=== PATIENT | male | born 1945 | race Caucasian/White ===

== ENCOUNTER 2021-04-14 17:34 | Inpatient (IN) ==
--- NOTE | 2021-04-14 18:26 | Emergency Department Note ---
Impression & Plan Complete heart block, HTN (hypertension), Ependymoma ED Provider Note NAME: DARIUS CARTER AGE: 75 SEX: M : 1945 ARRIVES VIA: Walk-In INFORMANT: Patient, ED PROVIDER(S): Vasquez Abel DO CHIEF COMPLAINT: Weakness HPI: The patient is a 75-year-old male who presented to the emergency department for an evaluation of generalized weakness. The patient has a history of a brain tumor. He has had surgeries in the past for this. He is normally followed at [facility]. He states he was very recently and had follow-up imaging which include an MRI of the brain. Everything appears to be stable in his intracranial process with the patient started bringing up that he has been having generalized weakness especially with ambulation. He is also been noticing shortness of breath with exertion. The patient also noticed that his pulse rate was low. He states that this is been going on for at least the last few months but continues to worsen. Over the last week it has become very severe and he is having difficulty ambulating even across the room. The patient states he tried to get in with his primary care physician. He was unable to get an appointment. When he called [facility] they told him that he should likely go to the hospital as he may need a pacemaker. The patient denies having any new medications. He states has been compliant with all of his usual outpatient medications. He denies having any recent illnesses such as cough fever nausea or vomiting. He denies having any headache at this time. ROS: See above HPI for pertinent positives & negatives. A total of 10 systems reviewed and were otherwise negative. PAST MEDICAL HISTORY: See Below PAST SURGICAL HISTORY: See Below FAMILY HISTORY: See Below SOCIAL HISTORY: See Below HOME MEDICATIONS: See Below ALLERGIES: See Below VITALS: See Below PHYSICAL EXAMINATION: GENERAL: The patient is awake and alert. The patient is resting comfortably. EYES: The conjunctivae are clear. The pupils are round and reactive. EARS, NOSE, MOUTH AND THROAT: The nose is without any evidence of any deformity. NECK: The neck is nontender and supple. RESPIRATORY: Normal respiratory effort is noted there is no evidence of wheezing rhonchi or rales CARDIOVASCULAR: Regular heart sounds were noted to auscultation. There is no definite murmur. Heart sounds were bradycardic. GASTROINTESTINAL: The abdomen is soft. Abdomen is nontender. MUSCULOSKELETAL/EXTREMITIES: There is no evidence of gross deformity full range of motion is noted in the hips and shoulders. SKIN: Pedal edema was noted bilaterally. Skin was warm and dry. NEUROLOGIC: Patient is awake alert and oriented x3. MEDICAL DECISION MAKING: The patient is a 75-year-old male who presented to emergency department for generalized weakness. 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 He does not have significant hydrocephalus. I discussed the patient's laboratory and radiographic studies with him. His presentation revealed an EKG that I felt was consistent with third-degree heart block. I discussed his condition with the on-call [facility] archeologist as well as the on-call [facility] hospitalist. The patient was treated with atropine to determine if there would be a response however given the block there was no significant change in the patient's heart rate. The patient remained stable in the emergency department. He was felt to be a good candidate for pacemaker. The patient is to be evaluated by cardiology for pacemaker placement. The patient was agreeable to the plan. Triage Nursing notes reviewed. Prior medical records reviewed Vital Signs: reviewed and remarkable for bradycardia and hypertension. Differential diagnosis: Infection, dehydration, metabolic abnormality, hypo/hyperglycemia, electrolyte disturbance, anemia, hypoxia, cardiac sources, intracerebral event, toxicologic, neurologic, as well as other pathologies. ER treatment provided: See below Diagnostics interpreted by me: ECG: EKG was obtained in the emergency department. My interpretation is third- degree heart block at 31 bpm. Ectopy was noted. No previous tracing was available for comparison. A second EKG was obtained after 1 mg of atropine. My interpretation is third- degree heart block at 41 bpm. There is no significant change compared to the earlier tracing. Cardiac Monitoring: An order was placed for continuous cardiac monitoring. The monitor shows a rate of 30 bpm with third-degree heart block. Laboratory studies: As stated above and show below. Imaging studies: See below Consultation(s): 184: I discussed this case with Dr. Duarte he does recommend giving the patient a dose of atropine and then reevaluating the rhythm. I discussed this case with Dr. Pereyra [facility] He will evaluate the patient in the emergency department. ED COURSE: Procedures: none PDMP:reviewed and no issues Critical Care: I have personally spent greater than 40 minutes of critical care time in the direct management of this patient. This includes bedside care, interpretation of diagnostic studies, and testing, discussion with consultants, patient, and family members, and other required patient management activities. This 40 minutes is in excess of all separately billable procedures. Past Med/Surg History Medical History Ependymoma GERD (gastroesophageal reflux disease) Hypertension Surgical History H/O brain surgery Social History Smoking Status: Former smoker Tobacco Type: Cigarettes and Smokeless Tobacco (Dip or Chew) Feels Safe at Home: Yes Allergies Allergies Allergy/AdvReac Type Severity Reaction Status Date / Time No Known Allergies Allergy Unverified 04/14/21 18:59 Home Meds Home Medications Medication Instructions Recorded Confirmed amlodipine 10 mg tablet 10 mg PO QAM 04/14/21 04/14/21 omeprazole 20 mg tablet,delayed 20 mg PO QAM 04/14/21 04/14/21 release Results & Data (ED) Vital Signs Vital Signs - 24 hr 04/14/21 18:05 04/14/21 18:40 04/14/21 18:50 Temperature 36.5 C Temperature Source Temporal Artery Scan Pulse Rate 33 L 33 L 40 L Pulse Rate from SpO2 Sensor 32 L Respiratory Rate 20 16 17 Respiratory Effort / Characteristics Non-Labored Spontaneous Respiratory Depth Normal Blood Pressure 176/81 H Blood Pressure Mean 112 Pulse Oximetry 97 99 Oxygen Delivery Method Room Air Sepsis Recent Fever Within 48 Hours No Sepsis New/Unexplained Change in Mental Status N/A Sepsis Action Taken by Nursing No Action Required 04/14/21 19:00 04/14/21 19:07 04/14/21 19:10 Temperature Temperature Source Pulse Rate 33 L 35 L Pulse Rate from SpO2 Sensor 35 L 34 L Respiratory Rate 21 16 Respiratory Effort / Characteristics Respiratory Depth Blood Pressure Blood Pressure Mean Pulse Oximetry 95 95 98 Oxygen Delivery Method Room Air Sepsis Recent Fever Within 48 Hours Sepsis New/Unexplained Change in Mental Status Sepsis Action Taken by Nursing 04/14/21 19:20 04/14/21 19:31 04/14/21 19:40 Temperature Temperature Source Pulse Rate 35 L 87 28 L Pulse Rate from SpO2 Sensor 33 L 31 L Respiratory Rate 16 26 H 14 Respiratory Effort / Characteristics Respiratory Depth Blood Pressure Blood Pressure Mean Pulse Oximetry 96 94 Oxygen Delivery Method Sepsis Recent Fever Within 48 Hours Sepsis New/Unexplained Change in Mental Status Sepsis Action Taken by Nursing 04/14/21 19:50 04/14/21 20:00 04/14/21 20:10 Temperature Temperature Source Pulse Rate 37 L 32 L 38 L Pulse Rate from SpO2 Sensor 36 L 32 L 38 L Respiratory Rate 17 16 16 Respiratory Effort / Characteristics Respiratory Depth Blood Pressure Blood Pressure Mean Pulse Oximetry 94 94 96 Oxygen Delivery Method Sepsis Recent Fever Within 48 Hours Sepsis New/Unexplained Change in Mental Status Sepsis Action Taken by Nursing 04/14/21 20:20 04/14/21 20:30 04/14/21 20:40 Temperature Temperature Source Pulse Rate 36 L 36 L 30 L Pulse Rate from SpO2 Sensor 34 L 34 L 31 L Respiratory Rate 15 16 22 Respiratory Effort / Characteristics Respiratory Depth Blood Pressure Blood Pressure Mean Pulse Oximetry 90 94 Oxygen Delivery Method Sepsis Recent Fever Within 48 Hours Sepsis New/Unexplained Change in Mental Status Sepsis Action Taken by Nursing 04/14/21 20:50 04/14/21 21:00 04/14/21 21:10 Temperature Temperature Source Pulse Rate 43 L 33 L 30 L Pulse Rate from SpO2 Sensor 37 L 34 L 33 L Respiratory Rate 15 15 Respiratory Effort / Characteristics Respiratory Depth Blood Pressure 178/85 H Blood Pressure Mean 116 Pulse Oximetry 94 94 96 Oxygen Delivery Method Sepsis Recent Fever Within 48 Hours Sepsis New/Unexplained Change in Mental Status Sepsis Action Taken by Nursing 04/14/21 21:20 04/14/21 21:30 04/14/21 21:40 Temperature Temperature Source Pulse Rate 32 L 32 L 33 L Pulse Rate from SpO2 Sensor 31 L 29 L 31 L Respiratory Rate 14 12 Respiratory Effort / Characteristics Respiratory Depth Blood Pressure 186/88 H Blood Pressure Mean 120 Pulse Oximetry 94 92 94 Oxygen Delivery Method Sepsis Recent Fever Within 48 Hours Sepsis New/Unexplained Change in Mental Status Sepsis Action Taken by Nursing 04/14/21 21:50 Temperature Temperature Source Pulse Rate 30 L Pulse Rate from SpO2 Sensor 34 L Respiratory Rate 15 Respiratory Effort / Characteristics Respiratory Depth Blood Pressure Blood Pressure Mean Pulse Oximetry 93 Oxygen Delivery Method Sepsis Recent Fever Within 48 Hours Sepsis New/Unexplained Change in Mental Status Sepsis Action Taken by Alf Medications Current Medication List: was personally reviewed by co Laboratory Data Attestation: I reviewed the patient's lab results. Result diagrams: 04/14/21 18:27 04/14/21 18:27 Lab Results 04/14/21 04/14/21 04/14/21 Range/Units 18:27 18:27 18:27 WBC 6.69 (4.8-10.8) K/uL RBC 4.90 (4.7-6.1) M/uL Hgb 14.7 (14.0-18.0) g/dL Hct 43.3 (42-52) % MCV 88.4 (80-100) fL MCH 30.0 (25-34) pg MCHC 33.9 (32-36) g/dL RDW Std Deviation 45.5 (36.4-46.3) fL RDW Coeff of Jose Luis 14.0 (11.5-14.5) % Plt Count 187 (130-400) K/uL MPV 10.0 (7.4-10.4) fL Immature Gran % (Auto) 0.1 % Neut % (Auto) 43.3 % Lymph % (Auto) 43.8 % [place] % (Auto) 10.0 % Eos % (Auto) 2.4 % Baso % (Auto) 0.4 % Neut # (Auto) 2.89 (1.4-6.5) K/uL Lymph # (Auto) 2.93 (1.2-3.4) K/uL [place] # (Auto) 0.67 H (0.11-0.59) K/uL Eos # (Auto) 0.16 (0-0.5) K/uL Baso # (Auto) 0.03 (0-0.2) K/uL Immature Gran # (Auto) 0.01 (0.00-0.02) K/uL PT 10.6 (9.0-12.0) Seconds INR 1.0 (0.9-1.1) APTT 25.2 (21.0-31.0) Seconds PTT Ratio 1.0 Sodium 140 (136-145) mmol/L Potassium 3.7 (3.5-5.1) mmol/L Chloride 109 H (98-107) mmol/L Carbon Dioxide 27 (21-32) mmol/L Anion Gap 4.0 (3-11) BUN 14 (7-18) mg/dl Creatinine 0.86 (0.6-1.4) mg/dl Est Cr Clr Drug Dosing 82.8 ml/min Est GFR ( Amer) 96.9 ml/min Est GFR (Non-Af Amer) 83.6 ml/min BUN/Creatinine Ratio 16.5 (10-20) Glucose 94 (70-99) mg/dl Calcium 8.9 (8.5-10.1) mg/dl Magnesium 2.9 H (1.8-2.4) mg/dl Total Bilirubin 0.5 (0.2-1) mg/dl AST 13 L (15-37) U/L ALT 22 (12-78) U/L Alkaline Phosphatase 82 (45-117) U/L Troponin I < 0.015 (0-0.045) ng/ml Total Protein 7.2 (6.4-8.2) gm/dl Albumin 3.6 (3.4-5.0) gm/dl Globulin 3.6 (2.5-4.0) gm/dl Albumin/Globulin Ratio 1.0 (0.9-2) TSH 1.310 (0.300-4.500) uIu/ml Lyme Disease IgG Ab (Negative) Lyme Disease IgM Ab (Negative) COVID-19 Eval Order SARS-CoV-2 (PCR) (Negative) 04/14/21 04/14/21 04/14/21 Range/Units 18:27 18:40 18:40 WBC (4.8-10.8) K/uL RBC (4.7-6.1) M/uL Hgb (14.0-18.0) g/dL Hct (42-52) % MCV (80-100) fL MCH (25-34) pg MCHC (32-36) g/dL RDW Std Deviation (36.4-46.3) fL RDW Coeff of Jose Luis (11.5-14.5) % Plt Count (130-400) K/uL MPV (7.4-10.4) fL Immature Gran % (Auto) % Neut % (Auto) % Lymph % (Auto) % [place] % (Auto) % Eos % (Auto) % Baso % (Auto) % Neut # (Auto) (1.4-6.5) K/uL Lymph # (Auto) (1.2-3.4) K/uL [place] # (Auto) (0.11-0.59) K/uL Eos # (Auto) (0-0.5) K/uL Baso # (Auto) (0-0.2) K/uL Immature Gran # (Auto) (0.00-0.02) K/uL PT (9.0-12.0) Seconds INR (0.9-1.1) APTT (21.0-31.0) Seconds PTT Ratio Sodium (136-145) mmol/L Potassium (3.5-5.1) mmol/L Chloride (98-107) mmol/L Carbon Dioxide (21-32) mmol/L Anion Gap (3-11) BUN (7-18) mg/dl Creatinine (0.6-1.4) mg/dl Est Cr Clr Drug Dosing ml/min Est GFR ( Amer) ml/min Est GFR (Non-Af Amer) ml/min BUN/Creatinine Ratio (10-20) Glucose (70-99) mg/dl Calcium (8.5-10.1) mg/dl Magnesium (1.8-2.4) mg/dl Total Bilirubin (0.2-1) mg/dl AST (15-37) U/L ALT (12-78) U/L Alkaline Phosphatase (45-117) U/L Troponin I (0-0.045) ng/ml Total Protein (6.4-8.2) gm/dl Albumin (3.4-5.0) gm/dl Globulin (2.5-4.0) gm/dl Albumin/Globulin Ratio (0.9-2) TSH (0.300-4.500) uIu/ml Lyme Disease IgG Ab Negative (Negative) Lyme Disease IgM Ab Negative (Negative) COVID-19 Eval Order Covid19 at [facility] SARS-CoV-2 (PCR) NEGATIVE (Negative) Administered Medications Potassium Chloride 20 meq/ (Dextrose/Lactated Ringer's) 1,010 mls @ 40 mls/hr IV .Q24H RODO Stop: 05/14/21 23:44 Last Admin: 04/14/21 23:43 Dose: 40 mls/hr Documented by: [id number] Discontinued Medications Amlodipine Besylate (Amlodipine Besylate 5 Mg Tab) 10 mg PO NOW STA Stop: 04/14/21 22:46 Last Admin: 04/14/21 23:42 Dose: Not Given Documented by: [id number] Atropine Sulfate (Atropine Sulfate 0.1 Mg/Ml 10ml Syr) 0.5 mg IV NOW STA Stop: 04/14/21 18:53 Last Admin: 04/14/21 19:03 Dose: 0.5 mg Documented by: [id number] Potassium Chloride (Potassium Chloride Crtab 20 Meq Tabcr) 40 meq PO NOW STA Stop: 04/14/21 21:39 Last Admin: 04/14/21 22:33 Dose: 40 meq Documented by: [id number] Imaging Data Radiologist's Impression: Chest X-Ray 04/14/21 18:11 XR chest 1V portable HISTORY: 75 years-old Male Chest Pain acute atypical chest pain COMPARISON: Chest radiographs 07/26/2006 TECHNIQUE: Portable AP view the chest FINDINGS: Cardiac silhouette is enlarged. No pneumothorax, pleural effusion or overt pulmonary edema. Mild chronic interstitial coarsening. Widening of the mediastinum is new from comparison. Calcified mediastinal lymph nodes. Calcific granuloma granuloma of the right lung. Degenerative changes of the shoulders and spine. IMPRESSION: 1. Cardiomegaly with widening of the mediastinum, likely secondary to technique. 2. Prior granulomatous disease. ACT 112: Negative or not required by law. The above report was generated using voice recognition software. It may contain grammatical, syntax or spelling errors. Electronically signed by: Jovany Morataya M.D. 04/14/2021 7:[address] 04/14/21 18:43 CT head/brain wo con CLINICAL HISTORY: 75 years-old Male with weakness. Acute weakness TECHNIQUE: Multiple axial CT images of the head were obtained without contrast. A dose lowering technique was utilized adhering to the principles of ALARA. CT DOSE: 1041.13 mGy.cm COMPARISON: Brain MRI 12/11/2007 07/05/2007 FINDINGS: Heterogeneous mixed attenuating mass of the posterior fossa measures up to 5.2 cm on image 7 series 2 demonstrates areas of marginal calcification. There is effacement of the fourth ventricle with encasement of the pontine and medullary brainstem and cervical medullary cord. This lesion previously measured up to ap proximately 3.4 cm on the 2007 study. No acute intracranial hemorrhage or hydrocephalus. Cerebral vascular calcifications. Progressively worsened white matter hypodensities. 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 The calvarium is intact. Mastoid air cells are clear. There is a large focus of polypoid mucosal thickening within the right maxillary sinus with small focus of polypoid mucosal thickening on the left. Suboccipital craniotomy changes. Unremarkable soft tissues. IMPRESSION: 1. Moderately increased size of the posterior fossa mass correlating with the patient's history of partially resected ependymoma now measuring over 5 cm in size. This results in effacement of the fourth ventricle. No associated hydrocephalus. 2. Age-related involutional changes with progressively worsened chronic microvascular ischemic disease. ACT 112: Negative or not required by law. The above report was generated using voice recognition software. It may contain grammatical, syntax or spelling errors. Electronically signed by: Jovany Morataya M.D. 04/14/2021 7:46 PM Discharge Plan Visit Data Chief Complaint: Cardiac Assessment Stated Complaint: LOW HEART RATE, CANT WALK VERY FAR ED Provider: Vasquez Abel Discharge Problem: Complete heart block, HTN (hypertension), Ependymoma Patient Disposition: Admitted As Inpatient Discharge Instructions Interventions: ED Discharge Assessment Last Done: 04/14/21 22:43 Discharge Problem: HTN (hypertension) Qualifiers: Hypertension type: unspecified Qualified Code(s): I10 - Essential (primary) hypertension
[2021-04-14] MEDS ORDERED: ATROPINE SULFATE 0.1 MG/ML 10ML SYR IV STA (18:52)
[2021-04-14 18:57] LABS: Basophils # (auto) 0.03 K/uL (0-0.2); Basophils % (auto) 0.4 %; Eosinophils # (auto) 0.16 K/uL (0-0.5); Eosinophils % (auto) 2.4 %; Hematocrit (blood only) 43.3 % (42-52); Hemoglobin 14.7 g/dL (14.0-18.0); Immature Granulocytes # (auto) 0.01 K/uL (0.00-0.02); Immature Granulocytes % (auto) 0.1 %; Lymphocytes # (auto) 2.93 K/uL (1.2-3.4); Lymphocytes % (auto) 43.8 %; Mean Corpuscular Hgb Conc 33.9 g/dL (32-36); Mean Corpuscular Volume 88.4 fL (80-100); Monocytes # (auto) 0.67 K/uL (0.11-0.59); Neutrophils # (auto) 2.89 K/uL (1.4-6.5); Neutrophils % (auto) 43.3 %; Platelet Count 187 K/uL (130-400); RDW Standard Deviation 45.5 fL (36.4-46.3); White Blood Count 6.69 K/uL (4.8-10.8)
[2021-04-14 19:08] LABS: Partial Thromboplastin Time 25.2 Seconds (21.0-31.0); Prothrombin Time 10.6 Seconds (9.0-12.0)
[2021-04-14 19:14] LABS: Alanine Aminotransferase 22 U/L (12-78); Albumin Level 3.6 gm/dl (3.4-5.0); Aspartate Aminotransferase 13 U/L (15-37); BUN Creatinine Ratio 16.5 (10-20); Blood Urea Nitrogen 14 mg/dl (7-18); Calcium 8.9 mg/dl (8.5-10.1); Carbon Dioxide 27 mmol/L (21-32); Chloride 109 mmol/L (98-107); Creatinine Clr Calc Pharmacy 82.8 ml/min; Est GFR (African American) 96.9 ml/min; Est GFR (Non-African American) 83.6 ml/min; Glucose 94 mg/dl (70-99); Magnesium 2.9 mg/dl (1.8-2.4); Potassium 3.7 mmol/L (3.5-5.1); Sodium 140 mmol/L (136-145)
--- NOTE | 2021-04-14 19:23 | XRay Report ---
XR chest 1V portable HISTORY: 75 years-old Male Chest Pain acute atypical chest pain COMPARISON: Chest radiographs 07/26/2006 TECHNIQUE: Portable AP view the chest FINDINGS: Cardiac silhouette is enlarged. No pneumothorax, pleural effusion or overt pulmonary edema. Mild kaiako kura [place] bautista interstitial coarsening. Widening of the mediastinum is new from comparison. Calcified mediastina l lymph nodes. Calcific granuloma granuloma of the right lung. Degenerative changes of the shoulders and spine. IMPRESSION: 1. Cardiomegaly with widening of the mediastinum, likely secondary to technique. 2. Prior granulomatous disease. ACT 112: Negative or not required by law. The above report was generated using voice recognition software. It may contain grammatical, syntax o r spelling errors. Electronically signed by: Jovany Morataya M.D. 04/14/2021 7:21 PM
[2021-04-14 19:24] LABS: Alkaline Phosphatase 82 U/L (45-117); Bilirubin,Total 0.5 mg/dl (0.2-1); Globulin 3.6 gm/dl (2.5-4.0); Total Protein 7.2 gm/dl (6.4-8.2); Troponin I < 0.015 ng/ml (0-0.045)
--- NOTE | 2021-04-14 19:48 | CT Scan Report ---
CT head/brain wo con CLINICAL HISTORY: 75 years-old Male with weakness. Acute weakness TECHNIQUE: Multiple axial CT images of the head were obtained without contrast. A dose lowering tech nique was utilized adhering to the principles of ALARA. CT DOSE: 1041.13 mGy.cm COMPARISON: Brain MRI 12/11/2007 07/05/2007 FINDINGS: Heterogeneous mixed attenuating mass of the posterior fossa measures up to 5.2 cm on image 7 series 2 demonstrates areas of marginal calcification. There is effacement of the fourth ventricle with encas ement of the pontine and medullary brainstem and cervical medullary cord. This lesion previously oc ured up to approximately 3.4 cm on the 2007 study. No acute intracranial hemorrhage or hydrocephalus. Cerebral vascular calcifications. Progressively wo rsened white matter hypodensities. Encephalomalacia of the right frontal lobe suggestive of chronic i nfarct. The calvarium is intact. Mastoid air cells are clear. There is a large focus of polypoid mucosal thi ckening within the right maxillary sinus with small focus of polypoid mucosal thickening on the left. Suboccipital craniotomy changes. Unremarkable soft tissues. IMPRESSION: 1. Moderately increased size of the posterior fossa mass correlating with the patient's history of pa rtially resected ependymoma now measuring over 5 cm in size. This results in effacement of the fourth ventricle. No associated hydrocephalus. 2. Age-related involutional changes with progressively worsened chronic microvascular ischemic diseas e. ACT 112: Negative or not required by law. The above report was generated using voice recognition software. It may contain grammatical, syntax o r spelling errors. Electronically signed by: Jovany Morataya M.D. 04/14/2021 7:46 PM
[2021-04-14 20:42] LABS: Lyme Ab IgG w/WB Rflx Negative (Negative); Lyme Ab IgM w/WB Rflx Negative (Negative)
[2021-04-14] MEDS ORDERED: POTASSIUM CHLORIDE CRTAB 20 MEQ TABCR PO STA (21:38)
--- NOTE | 2021-04-14 22:13 | History & Physical Report ---
Date of Service April 14, 2021 Assessment & Plan (1) Symptomatic bradycardia: Plan: Complete heart block ? 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 Duarte who recommends ICU monitoring and possible PPM placement in a.m.) Facilitate home amlodipine Follow-up with [facility]cology for further management of brain tumor as per patient's preference. DVT prophylaxis. SCDs Re: Brain tumor Full code Patient request for his to updated of plan of care. Ms. Radha Medina, contact #[phone]. Text document was generated using [employer] voice recognition software. It may contain grammatical or spelling errors. Kindly contact undersigned for clarification of any documentation item in question. History of Present Illness Chief Complaint: Generalized weakness, shortness of breath on exertion Primary Care Provider: Domingo Santana MD History obtained from patient and records. Medical history significant for cranial ependymoma status post surgery, radiation (2005), HTN, PVD, GERD, past tobacco abuse. Patient noted worsening of chronic weakness of his right side since last year. Worsening balance and frequent falls with transient left visual field loss symptoms. Patient denies headache symptoms. Outpatient Brain MRI last February 2021 results as follows : Heterogeneously enhancing mass in the posterior fossa encasing the distal right vertebral artery causing mass-effect on the medulla and cerebellum. Although the overall dimensions of the mass appears similar, extent of adjacent FLAIR hyperintensity in the right cerebellum is increased. May reflect progressive vasogenic edema or progressive tumor infiltration. Extensive findings of superficial fibrosis throughout cerebellar folia as well as with numerous supratentorial foci suggesting prior subarachnoid hemorrhage. Moderate advanced chronic white matter changes. Patient neurologist recommended follow-up with [facility] Hospital surgeon in [place]. No role for operative intervention as per surgeon as per patient. Possible role for radiotherapy. Patient noted to be bradycardic, cardiac rate in the 30s during [facility] visit. Patient without chest pain, shortness of breath complaints at that time. [facility] surgeon recommended local cardiology consultation for bradycardia. In the last week, patient noted increased fatigue and shortness of breath on exertion. Transient chest tightness. Cardiac rate 30s at home. Patient advised by PCP's office to go to the ER. Patient noted to have complete heart block at the ER. Cardiac rate 20-30s. Atropine 1 dose given. As per patient, he is comfortable as long as he is not moving around. Medical History as above Outpatient TTE follow-up study for December 2020 as follows: Concentric LVH. Moderate LAE enlargement. Mildly abnormal LV diastolic dysfunction. Mild AV sclerosis. Mild MR is present. Mild TR present. Aortic root is borderline enlarged. Proximal ascending thoracic aorta is mildly enlarged. No significant change from April 2019. 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 Allergies Allergy/AdvReac Type Severity Reaction Status Date / Time No Known Allergies Allergy Unverified 04/14/21 18:59 Home Medications Medication Instructions Recorded Confirmed Type amlodipine 10 mg tablet 10 mg PO QAM 04/14/21 04/14/21 History omeprazole 20 mg tablet,delayed 20 mg PO QAM 04/14/21 04/14/21 History release Past Med/Surg History Medical History Ependymoma GERD (gastroesophageal reflux disease) Hypertension Surgical History H/O brain surgery Social History Smoking Status: Former smoker Tobacco Type: Cigarettes and Smokeless Tobacco (Dip or Chew) Do You Dip or Chew Tobacco: Yes; Hx Alcohol Use: No Hx Substance Use: No Preferred Language: Filipino Communication Ability: Effective [place] And [place] Required: No Beliefs That Will Affect Care: None Current Living Situation: Spouse Other Information That Helps Us Care for You: No Feels Safe at Home: Yes Safety Concerns: Feels Safe At This Time Assistive Devices: Denture - Upper, Glasses and Hearing Aid - Bilateral Review of Systems Review of Systems: As per HPI, all 10 systems reviewed, all other ROS negative Physical Exam Physical Exam: GENERAL: Comfortable, slightly hard of hearing, dysarthric (chronic), pleasant, no respiratory distress SKIN: Normal color, warm HEENT: Bespectacled, pink palpebral conjunctivae, no ptosis, dry buccal mucosa NECK : Supple, no tenderness CHEST : CTA, no tenderness HEART : Bradycardic, no obvious murmurs ABDOMEN: Some distention, nontender EXTREMITIES : No LE swelling/tenderness, no other conspicuous deformities noted NEUROLOGIC : Coherent, mild dysarthria, gait and stance not assessed Results & Data Results & Data ([facility]) Vital Signs (Past 12 Hours) Vital Signs Temp Pulse Resp BP Pulse Ox 04/14/21 21:50 30 L 15 93 04/14/21 21:40 33 L 12 94 04/14/21 21:30 32 L 186/88 H 92 04/14/21 21:20 32 L 14 94 04/14/21 21:10 30 L 96 04/14/21 21:00 33 L 15 178/85 H 94 04/14/21 20:50 43 L 15 94 04/14/21 20:40 30 L 22 94 04/14/21 20:30 36 L 16 04/14/21 20:20 36 L 15 90 04/14/21 20:10 38 L 16 96 04/14/21 20:00 32 L 16 94 04/14/21 19:50 37 L 17 94 04/14/21 19:40 28 L 14 94 04/14/21 19:31 87 26 H 04/14/21 19:20 35 L 16 96 04/14/21 19:10 35 L 16 98 04/14/21 19:07 95 04/14/21 19:00 33 L 21 95 04/14/21 18:50 40 L 17 04/14/21 18:40 33 L 16 99 04/14/21 18:05 36.5 C 33 L 20 176/81 H 97 Laboratory Results Laboratory Results WBC 6.69 K/uL (4.8-10.8) 04/14/21 18:27 RBC 4.90 M/uL (4.7-6.1) 04/14/21 18:27 Hgb 14.7 g/dL (14.0-18.0) 04/14/21 18:27 Hct 43.3 % (42-52) 04/14/21 18:27 MCV 88.4 fL (80-100) 04/14/21 18:27 MCH 30.0 pg (25-34) 04/14/21 18:27 MCHC 33.9 g/dL (32-36) 04/14/21 18: RDW Std Deviation 45.5 fL (36.4-46.3) 04/14/21 18: RDW Coeff of Jose Luis 14.0 % (11.5-14.5) 04/14/21 18: Plt Count 187 K/uL (130-400) 04/14/21 18: MPV 10.0 fL (7.4-10.4) 04/14/21 18: Immature Gran % (Auto) 0.1 % 04/14/21 18: Neut % (Auto) 43.3 % 04/14/21: Lymph % (Auto) 43.8 % 04/14/21: Frederick % (Auto) 10.0 % 04/14/21: Eos % (Auto) 2.4 % 04/14/21 Baso % (Auto) 0.4 % 04/14/21 18 Neut # (Auto) 2.89 K/uL (1.4-6.5) 04/14/21 18: Lymph # (Auto) 2.93 K/uL (1.2-3.4) 04/14/21 18: Frederick # (Auto) 0.67 K/uL (0.11-0.59) H 04/14/21 18: Eos # (Auto) 0.16 K/uL (0-0.5) 04/14/21 18: Baso # (Auto) 0.03 K/uL (0-0.2) 04/14/21: Immature Gran # (Auto) 0.01 K/uL (0.00-0.02) 04/14/21 18: PT 10.6 Seconds (9.0-12.0) 04/14/21 18: INR 1.0 (0.9-1.1) 04/14/21: APTT 25.2 Seconds (21.0-31.0) 04/14/21 18: PTT Ratio 1.0 04/14/21 18: Sodium 140 mmol/L (136-145) 04/14/21 18: Potassium 3.7 mmol/L (3.5-5.1) 04/14/21:27 Chloride 109 mmol/L (98-107) H 04/14/21 18: Carbon Dioxide 27 mmol/L (21-32) 04/14/21 18: Anion Gap 4.0 (3-11) 04/14/21 18: BUN 14 mg/dl (7-18) 04/14/21 18: Creatinine 0.86 mg/dl (0.6-1.4) 04/14/21 18: Est Cr Clr Drug Dosing 82.8 ml/min 04/14/21 18: Est GFR ( Amer) 96.9 ml/min 04/14/21 18: Est GFR (Non-Af Amer) 83.6 ml/min 04/14/21: BUN/Creatinine Ratio 16.5 (10-20) 04/14/21 18: Glucose 94 mg/dl (70-99) 04/14/21 18: Calcium 8.9 mg/dl (8.5-10.1) 04/14/21 18: Magnesium 2.9 mg/dl (1.8-2.4) H 04/14/21 18: Total Bilirubin 0.5 mg/dl (0.2-1) 04/14/21 18: AST 13 U/L (15-37) L 04/14/21: ALT 22 U/L (12-78) 04/14/21 18: Alkaline Phosphatase 82 U/L (45-117) 04/14/21: Troponin I < 0.015 ng/ml (0-0.045) 04/14/21 18: Total Protein 7.2 gm/dl (6.4-8.2) 04/14/21 18: Albumin 3.6 gm/dl (3.4-5.0) 04/14/21: Globulin 3.6 gm/dl (2.5-4.0) 04/14/21: Albumin/Globulin Ratio 1.0 (0.9-2) 04/14/21 18: TSH 1.310 uIu/ml (0.300-4.500) 04/14/21 18: Lyme Disease IgG Ab Negative (Negative) 04/14/21 18 Lyme Disease IgM Ab Negative (Negative) 10/07/21 18:27 COVID-19 Eval Order Covid19 at [facility] 04/14/21 18:40 SARS-CoV-2 (PCR) NEGATIVE (Negative) 04/14/21 18:40 Impressions Chest X-Ray 04/14/21 18:11 XR chest 1V portable HISTORY: 75 years-old Male Chest Pain acute atypical chest pain COMPARISON: Chest radiographs 07/26/2006 TECHNIQUE: Portable AP view the chest FINDINGS: Cardiac silhouette is enlarged. No pneumothorax, pleural effusion or overt pulmonary edema. Mild chronic interstitial coarsening. Widening of the mediastinum is new from comparison. Calcified mediastinal lymph nodes. Calcific granuloma granuloma of the right lung. Degenerative changes of the shoulders and spine. IMPRESSION: 1. Cardiomegaly with widening of the mediastinum, likely secondary to technique. 2. Prior granulomatous disease. ACT 112: Negative or not required by law. The above report was generated using voice recognition software. It may contain grammatical, syntax or spelling errors. Electronically signed by: Jovany Morataya M.D. 04/14/2021 7:[address] 04/14/21 18:43 CT head/brain wo con CLINICAL HISTORY: 75 years-old Male with weakness. Acute weakness TECHNIQUE: Multiple axial CT images of the head were obtained without contrast. A dose lowering technique was utilized adhering to the principles of ALARA. CT DOSE: 1041.13 mGy.cm COMPARISON: Brain MRI 12/11/2007 07/05/2007 FINDINGS: Heterogeneous mixed attenuating mass of the posterior fossa measures up to 5.2 cm on image 7 series 2 demonstrates areas of marginal calcification. There is effacement of the fourth ventricle with encasement of the pontine and medullary brainstem and cervical medullary cord. This lesion previously measured up to approximately 3.4 cm on the 2007 study. No acute intracranial hemorrhage or hydrocephalus. Cerebral vascular calcifications. Progressively worsened white matter hypodensities. 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 The calvarium is intact. Mastoid air cells are clear. There is a large focus of polypoid mucosal thickening within the right maxillary sinus with small focus of polypoid mucosal thickening on the left. Suboccipital craniotomy changes. Unremarkable soft tissues. IMPRESSION: 1. Moderately increased size of the posterior fossa mass correlating with the patient's history of partially resected ependymoma now measuring over 5 cm in size. This results in effacement of the fourth ventricle. No associated hydrocephalus. 2. Age-related involutional changes with progressively worsened chronic microvascular ischemic disease. ACT 112: Negative or not required by law. The above report was generated using voice recognition software. It may contain grammatical, syntax or spelling errors. Electronically signed by: Jovany Morataya M.D. 04/14/2021 7:46 PM Diagnostic Findings EKG as per my interpretation : Rate 30, complete heart block, LAD, LAFB, T wave abnormalities inferior leads
[2021-04-14] MEDS ORDERED: amLODIPine BESYLATE 5 MG TAB PO STA (22:45)
[2021-04-14] MEDS ORDERED: ATROPINE SULFATE 0.1 MG/ML 10ML SYR IV ONE (23:09)
[2021-04-14] MEDS ORDERED: oxyCODONE HCL IR 5 MG TAB (IMMEDIATE RELEASE) PO PRN (23:20)
[2021-04-14] MEDS ORDERED: MoRPHine SULFATE 2 MG/ML CARP IV PRN (23:20)
[2021-04-14] MEDS ORDERED: LORazepam 0.25 MG/0.5 ML VIAL IV PRN (23:20)
[2021-04-14] MEDS ORDERED: ICU PROTOCOL FOR HYPERGLYCEMIA PRN (23:20)
[2021-04-14] MEDS ORDERED: PROMETHAZINE HCL 12.5 MG in SODIUM CHLORIDE 0.9% 50 ML IV PRN (23:20)
[2021-04-14] MEDS ORDERED: ATROPINE SULFATE 0.1 MG/ML 10ML SYR IV PRN (23:20)
[2021-04-14] MEDS ORDERED: POTASSIUM CHLORIDE 20 MEQ in D5W AND LACTATED RINGERS 1,000 ML IV SCH (23:45)
--- NOTE | 2021-04-14 23:58 | Critical Care Consultation ---
Date of Consultation April 14, 2021 Assessment & Plan (1) Complete heart block: Impression: 75-year-old male presents to the ICU in complete heart block with heart rate low 30s. Currently asymptomatic at rest and remains hypertensive. Plan for patient to undergo pacemaker and monitor in ICU until then. Neuro - [facility] ICU: Negative History of brain tumorpatient with history of and ependymoma and underwent partial resection approximately 15 years ago at [facility]. He states he had an appointment at [facility] approximately 1 month ago and was evaluated and did not feel there is any intervention needed. -CT head showed moderately increased size of posterior fossa mass correlating with patient's history of partially resected ependymoma now measuring 5.2 cm. Results in effacement of the fourth ventricle. No associated hydrocephalus Cardiac - Complete heart blockpatient presents with complete heart block suspected to be ongoing x1 month per patient symptoms -Troponin negative -No severe electrolyte abnormalities -Lyme negative -Remains hemodynamically stable and currently asymptomatic at rest. Strict bed rest -Cardiology consulted, recommend monitoring in ICU with plan to undergo pacemaker insertion -Continuous monitor on telemetry -We will leave pacer pads on patient's chest in case he were to decompensate. Atropine at bedside Respiratory - Shortness of breath associated with exertion likely related to bradycardia -No history of pulmonary disease, lungs clear to auscultation -Continuous monitoring pulse ox GI - N.p.o. GERDPPI RENAL/LYTES - Creatinine within normal limits, no severe electrolyte abnormalities Monitor routine BMPs - Strict I's and O's ENDO - No history of diabetes or thyroid disease. TSH 1.31 ICU hyperglycemic protocol HEME - H&H stable, monitor routine CBC ID - No indication for infectious process at this time LINES/IV ACCESS - Peripheral IVs DVT PROPHYLAXIS - SCDs, hold anticoagulation as patient likely to undergo pacemaker insertion Thank you for allowing us to participate in the care of this patient. Please refer to my attending physician's documentation for any further recommendations. (2) HTN (hypertension): (3) Ependymoma: (4) GERD (gastroesophageal reflux disease): History of Present Illness Attending Physician: Maximino Valentin MD History of Present Illness Patient is a 75-year-old male with past medical history brain tumor with previous partial resection at [facility]. He presented to the emergency department earlier this evening with complaints of generalized weakness and fatigue with associated shortness of breath, significantly worse with exertion. He is also noticed that his pulse rates has been low on his home blood pressure monitoring device. He spoke with his physician at [facility] who directed him to the emergency department. In the emergency department the patient was found to have heart rate in the low 30s. He was initially given atropine on arrival. EKG revealed third-degree heart block. Troponin was negative. Lyme negative. Cardiology consulted and recommend monitoring in the ICU and likely patient will undergo pacemaker insertion. On exam, the patient is asymptomatic although his heart rate on the monitor is in the low 30s, and he is hypertensive. He again reports shortness of breath with activity but is currently asymptomatic. He denies recent illness, fevers, sore throat, chest pain, palpitations, abdominal pain. Patient remained in ICU for further monitoring at this time. Allergies Allergy/AdvReac Type Severity Reaction Status Date / Time No Known Allergies Allergy Unverified 04/14/21 18:59 Home Medications Medication Instructions Recorded Confirmed Type amlodipine 10 mg tablet 10 mg PO QAM 04/14/21 04/14/21 History omeprazole 20 mg tablet,delayed 20 mg PO QAM 04/14/21 04/14/21 History release Patient History Medical History Ependymoma GERD (gastroesophageal reflux disease) Hypertension Surgical History H/O brain surgery Social History Smoking Status: Former smoker Tobacco Type: Cigarettes and Smokeless Tobacco (Dip or Chew) Do You Dip or Chew Tobacco: Yes; Hx Alcohol Use: No Hx Substance Use: No Preferred Language: Indonesian Communication Ability: Effective Dental Claims Processor Required: No Beliefs That Will Affect Care: None Current Living Situation: Spouse Other Information That Helps Us Care for You: No Feels Safe at Home: Yes Safety Concerns: Feels Safe At This Time Assistive Devices: Denture - Upper, Glasses and Hearing Aid - Bilateral Review of Systems Review of Systems: All systems reviewed & are unremarkable except as noted in HPI & below Physical Exam Constitutional: cooperative and comfortable Eyes: PERRL, conjunctivae normal, anicteric sclerae ENMT: external ear and nose normal, oropharynx normal Neck: trachea midline, no thyromegaly Respiratory: normal respiratory effort, lungs clear to auscultation Cardiovascular: Rate/Rhythm: + bradycardic and + irregularly irregular Heart Sounds: normal S1 and normal S2 Extremities: normal capillary refill; no edema Gastrointestinal (Abdomen): normal bowel sounds, soft, nontender, no hepatosplenomegaly Musculoskeletal: no cyanosis or clubbing, extremities motor strength 5/5 Skin: no rashes, warm and dry Neurologic: PERRL, EOMI, accommodation nl, no face palsy, no dysarthria Psychiatric: A+Ox3, euthymic affect Results & Data Results & Data ([facility]) Vital Signs (Past 12 Hours) Vital Signs Temp Pulse Resp BP Pulse Ox 04/14/21 22:43 30 L 16 154/75 H 94 04/14/21 21:50 30 L 15 93 04/14/21 21:40 33 L 12 94 04/14/21 21:30 32 L 186/88 H 92 04/14/21 21:20 32 L 14 94 04/14/21 21:10 30 L 96 04/14/21 21:00 33 L 15 178/85 H 94 04/14/21 20:50 43 L 15 94 04/14/21 20:40 30 L 22 94 04/14/21 20:30 36 L 16 04/14/21 20:20 36 L 15 90 04/14/21 20:10 38 L 16 96 04/14/21 20:00 32 L 16 94 04/14/21 19:50 37 L 17 94 04/14/21 19:40 28 L 14 94 04/14/21 19:31 87 26 H 04/14/21 19:20 35 L 16 96 04/14/21 19:10 35 L 16 98 04/14/21 19:07 95 04/14/21 19:00 33 L 21 95 04/14/21 18:50 40 L 17 04/14/21 18:40 33 L 16 99 04/14/21 18:05 36.5 C 33 L 20 176/81 H 97 Coding Level of Care Code 64998 Inpt Consult Level 5 Diagnoses Complete heart block I44.2 HTN (hypertension) I10 Ependymoma C71.9 GERD (gastroesophageal reflux disease) K21.9
[2021-04-15 04:57] LABS: BUN Creatinine Ratio 13.2 (10-20); Calcium 8.5 mg/dl (8.5-10.1); Creatinine Clr Calc Pharmacy 82.4 ml/min; Est GFR (African American) 99.9 ml/min; Est GFR (Non-African American) 86.2 ml/min; Potassium 4.2 mmol/L (3.5-5.1)
[2021-04-15] MEDS ORDERED: WATER, STERILE FOR INJ 10 ML VIAL ONE (06:52)
[2021-04-15] MEDS ORDERED: LIDOCAINE 1% LOCAL 20 ML VIAL ONE (06:52)
[2021-04-15] MEDS ORDERED: BUPIVACAINE 0.25% 30 ML VIAL ONE (06:53)
[2021-04-15] MEDS ORDERED: VANCOMYCIN HCL 1000MG/20ML VIAL ONE (06:53)
--- NOTE | 2021-04-15 07:56 | Critical Care Progress Note ---
Date of Service April 15, 2021 Assessment & Plan (1) Complete heart block: Plan: Brief progress note: 75-year-old male presents to the ICU in complete heart block with heart rate low 30s, asymptomatic at rest and hypertensive. He subsequently had placement of dual chamber pacemaker. complete heart block Rhythm is paced, rate in the 70s at the time of my exam after return from procedure. Cardiology's recommendations appreciated. Lyme ab neg neuro: CAM-ICU neg.+ posterior fossa mass (ependymoma). GI - HH diet after pacemaker placement GERDPPI RENAL/LYTES - No severe electrolyte opportunities. Monitor routine BMPs - Strict I's and O's. cumulative 1.2L in 1.9L out ENDO - No history of diabetes or thyroid disease. TSH 1.31 ICU hyperglycemic protocol HEME - H&H stable, monitor routine CBC ID - No indication for infectious process at this time LINES/IV ACCESS - Peripheral IVs DVT PROPHYLAXIS - SCDs code: full dispo: stable for downgrade from ICU (2) HTN (hypertension): (3) Symptomatic bradycardia: (4) Ependymoma: (5) GERD (gastroesophageal reflux disease): Admission and Anticipated Discharge Date Admission Date: April 14, 2021 Supervising Physician Co-Signing Physician Notes Dr. Escalante was resident physician during care of patient. I separately evaluated patient for travis portions of the history and the exam. I was present during the critical portion of medical decision making, and I discussed the case with the resident. I generally agree with the findings and plan. Pacemaker inserted by the time of my evaluation, stable for downgrade out of ICU. Subjective I saw the patient this AM at 7AM just prior to patient going to pacemaker placement. Patient endorses fatigue, but denies other symptoms. No f/c, chest pain, palpitations, SOB, confusion. Review of Systems Review of Systems: All systems reviewed & are unremarkable except as noted in HPI & below Physical Exam 2 Physical Exam: General: A&Ox4. NAD. Cooperative. HEENT: Atraumatic, normocephalic. EOMI Pulm: CTAB anteriorly. -wheezes, -rales, -rhonchi. No respiratory distress. Cardiac: RRR, -mrg. Radial pulses intact and symmetrical. Abdominal: Nontender, nondistended, soft. Integ: Warm, dry, intact Results & Data Results & Data ([place]) Vital Signs (Past 12 Hours) Vital Signs bps slightly elevated mostly 150s 160s systolics. sats ok RA. HR mid-low 30s. Temp Pulse Pulse Resp BP BP Pulse Ox 04/15/21 07:23 36.8 C 30 L 20 152/81 H 96 04/15/21 05:00 31 L 12 172/78 H 95 04/15/21 04:00 36.7 C 27 L 14 158/86 H 90 04/15/21 03:30 28 L 14 152/92 H 94 04/15/21 02:30 32 L 15 152/76 H 95 04/15/21 02:00 29 L 16 152/76 H 95 04/15/21 01:00 37 L 15 149/113 H 91 04/15/21 00:10 30 L 13 167/82 H 92 04/15/21 00:00 31 L 12 92 04/14/21 23:50 41 L 19 95 04/14/21 23:20 30 L 04/14/21 23:04 36.4 C L 32 L 15 167/75 H 93 04/14/21 23:00 36.4 C L 34 L 14 167/75 H 97 04/14/21 22:43 30 L 16 154/75 H 94 04/14/21 21:50 30 L 15 93 04/14/21 21:40 33 L 12 94 04/14/21 21:30 32 L 186/88 H 92 04/14/21 21:20 32 L 14 94 04/14/21 21:10 30 L 96 04/14/21 21:00 33 L 15 178/85 H 94 04/14/21 20:50 43 L 15 94 04/14/21 20:40 30 L 22 94 04/14/21 20:30 36 L 16 04/14/21 20:20 36 L 15 90 04/14/21 20:10 38 L 16 96 04/14/21 20:00 32 L 16 94 Laboratory Results 04/14 cbc and coags wnl. bmp ok. check mg phos w/ next AM labs. lyme Ab neg. 04/14/21 18:27 04/15/21 04:26 Cardiac Enzymes 04/14/21 Range/Units 18:27 AST 13 L (15-37) U/L Troponin I < 0.015 (0-0.045) ng/ml Coagulation 04/14/21 Range/Units 18:27 PT 10.6 (9.0-12.0) Seconds APTT 25.2 (21.0-31.0) Seconds CBC 04/14/21 Range/Units 18:27 WBC 6.69 (4.8-10.8) K/uL RBC 4.90 (4.7-6.1) M/uL Hgb 14.7 (14.0-18.0) g/dL Hct 43.3 (42-52) % Plt Count 187 (130-400) K/uL Neut # (Auto) 2.89 (1.4-6.5) K/uL Lymph # (Auto) 2.93 (1.2-3.4) K/uL Nash # (Auto) 0.67 H (0.11-0.59) K/uL Eos # (Auto) 0.16 (0-0.5) K/uL Baso # (Auto) 0.03 (0-0.2) K/uL Comprehensive Metabolic Panel 04/14/21 04/15/21 Range/Units 18:27 04:26 Sodium 140 142 (136-145) mmol/L Potassium 3.7 4.2 (3.5-5.1) mmol/L Chloride 109 H 112 H (98-107) mmol/L Carbon Dioxide 27 28 (21-32) mmol/L BUN 14 11 (7-18) mg/dl Creatinine 0.86 0.80 (0.6-1.4) mg/dl Glucose 94 98 (70-99) mg/dl Calcium 8.9 8.5 (8.5-10.1) mg/dl AST 13 L (15-37) U/L ALT 22 (12-78) U/L Alkaline Phosphatase 82 (45-117) U/L Total Protein 7.2 (6.4-8.2) gm/dl Albumin 3.6 (3.4-5.0) gm/dl Intake and Output 04/14/21 04/15/21 04/15/21 22:59 06:59 14:59 Output Total 900 / 900 Balance -900 / -900 Output: Urine 900 / 900 Other: Weight 90.6 kg 88.8 kg Weight Measurement Method Chair Scale Standing Scale Diagnostic Findings Chest X-Ray 04/14/21 18:11 XR chest 1V portable HISTORY: 75 years-old Male Chest Pain acute atypical chest pain COMPARISON: Chest radiographs 07/26/2006 TECHNIQUE: Portable AP view the chest FINDINGS: Cardiac silhouette is enlarged. No pneumothorax, pleural effusion or overt pulmonary edema. Mild chronic interstitial coarsening. Widening of the mediastinum is new from comparison. Calcified mediastinal lymph nodes. Calcific granuloma granuloma of the right lung. Degenerative changes of the shoulders and spine. IMPRESSION: 1. Cardiomegaly with widening of the mediastinum, likely secondary to technique. 2. Prior granulomatous disease. ACT 112: Negative or not required by law. The above report was generated using voice recognition software. It may contain grammatical, syntax or spelling errors. Electronically signed by: Jovany Morataya M.D. 04/14/2021 7:[address] 04/14/21 18:43 CT head/brain wo con CLINICAL HISTORY: 75 years-old Male with weakness. Acute weakness TECHNIQUE: Multiple axial CT images of the head were obtained without contrast. A dose lowering technique was utilized adhering to the principles of ALARA. CT DOSE: 1041.13 mGy.cm COMPARISON: Brain MRI 12/11/2007 07/05/2007 FINDINGS: Heterogeneous mixed attenuating mass of the posterior fossa measures up to 5.2 cm on image 7 series 2 demonstrates areas of marginal calcification. There is effacement of the fourth ventricle with encasement of the pontine and medullary brainstem and cervical medullary cord. This lesion previously measured up to approximately 3.4 cm on the 2007 study. No acute intracranial hemorrhage or hydrocephalus. Cerebral vascular calcifications. Progressively worsened white matter hypodensities. 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 The calvarium is intact. Mastoid air cells are clear. There is a large focus of polypoid mucosal thickening within the right maxillary sinus with small focus of polypoid mucosal thickening on the left. Suboccipital craniotomy changes. Unremarkable soft tissues. IMPRESSION: 1. Moderately increased size of the posterior fossa mass correlating with the patient's history of partially resected ependymoma now measuring over 5 cm in size. This results in effacement of the fourth ventricle. No associated hydrocephalus. 2. Age-related involutional changes with progressively worsened chronic microvascular ischemic disease. ACT 112: Negative or not required by law. The above report was generated using voice recognition software. It may contain grammatical, syntax or spelling errors. Electronically signed by: Jovany Morataya M.D. 04/14/2021 7:46 PM Resident Activity Tracking Resident Involvement: Resident Care Provided Care Provided: Adult Hospital Medicine (1) HTN (hypertension) Hypertension type: unspecified Qualified Code(s): I10 - Essential (primary) hypertension
--- NOTE | 2021-04-15 08:16 | History & Physical Bridge Note ---
Date of Service April 15, 2021 History & Physical Bridge Note I have examined the patient, reviewed the History & Physical and in the interval since the performance of the History & Physical I have noted the following changes of clinical significance: pt with CHB fo emergent pacemaker; discussed procedure and risks and consens signed
--- NOTE | 2021-04-15 08:16 | Pre Anesthesia Assessment ---
Date of Service April 15, 2021 Pre Sedation Assessment Vital Signs Temp Pulse Pulse Resp BP BP Pulse Ox 04/15/21 07:23 36.8 C 30 L 20 152/81 H 96 04/15/21 05:00 31 L 12 172/78 H 95 04/15/21 04:00 36.7 C 27 L 14 158/86 H 90 04/15/21 03:30 28 L 14 152/92 H 94 04/15/21 02:30 32 L 15 152/76 H 95 04/15/21 02:00 29 L 16 152/76 H 95 04/15/21 01:00 37 L 15 149/113 H 91 04/15/21 00:10 30 L 13 167/82 H 92 04/15/21 00:00 31 L 12 92 04/14/21 23:50 41 L 19 95 04/14/21 23:20 30 L 04/14/21 23:04 36.4 C L 32 L 15 167/75 H 93 04/14/21 23:00 36.4 C L 34 L 14 167/75 H 97 04/14/21 22:43 30 L 16 154/75 H 94 04/14/21 21:50 30 L 15 93 04/14/21 21:40 33 L 12 94 04/14/21 21:30 32 L 186/88 H 92 04/14/21 21:20 32 L 14 94 04/14/21 21:10 30 L 96 04/14/21 21:00 33 L 15 178/85 H 94 04/14/21 20:50 43 L 15 94 04/14/21 20:40 30 L 22 94 04/14/21 20:30 36 L 16 04/14/21 20:20 36 L 15 90 04/14/21 20:10 38 L 16 96 04/14/21 20:00 32 L 16 94 04/14/21 19:50 37 L 17 94 04/14/21 19:40 28 L 14 94 04/14/21 19:31 87 26 H 04/14/21 19:20 35 L 16 96 04/14/21 19:10 35 L 16 98 04/14/21 19:07 95 04/14/21 19:00 33 L 21 95 04/14/21 18:50 40 L 17 04/14/21 18:40 33 L 16 99 04/14/21 18:05 36.5 C 33 L 20 176/81 H 97 Cardiovascular + bradycardic Respiratory normal respiratory effort, lungs clear to auscultation Pre-Sedation Airway Assessment Smoking Status: Former smoker Hx Sleep Apnea: No Short, Thick Neck: No Thyromental Distance: > or= 3.5 Finger Breadths Oral Cavity: + Capped Teeth and + WNL Mallampati Class: II ASA: ASA2 NPO Status Date of Last Intake of Fluids: 04/14/21 Time of Last Intake of Fluids: 19:00 Date of Last Intake of Solid Food: 04/14/21 Time of Last Intake of Solid Foods: 19:00 Procedure Planning Contraindications for Sedation: none Current Medications Reviewed: Yes Notes The planned sedation has been discussed with the patient. Informed Consent was obtained. I have identified the patient, determined the appropriateness of sedation and have assessed the patient immediately prior to the procedure. All medicine(s) and interventions are by my order.
[2021-04-15] MEDS ORDERED: fentaNYL citrate 100 MCG/2 ML VIAL ONE ×2 (08:23→10:24)
[2021-04-15] MEDS ORDERED: MIDAZOLAM HCL 5 MG/ML 1 ML VIAL ONE ×2 (08:23→10:24)
[2021-04-15] MEDS ORDERED: hydrALAZINE HCL 20 MG/ML VIAL ONE (09:31)
--- NOTE | 2021-04-15 09:53 | Post Anesthesia Assessment ---
Date of Service April 15, 2021 Post Sedation Assessment Vital Signs Temp Pulse Pulse Resp BP BP Pulse Ox 04/15/21 07:23 36.8 C 30 L 20 152/81 H 96 04/15/21 05:00 31 L 12 172/78 H 95 04/15/21 04:00 36.7 C 27 L 14 158/86 H 90 04/15/21 03:30 28 L 14 152/92 H 94 04/15/21 02:30 32 L 15 152/76 H 95 04/15/21 02:00 29 L 16 152/76 H 95 04/15/21 01:00 37 L 15 149/113 H 91 04/15/21 00:10 30 L 13 167/82 H 92 04/15/21 00:00 31 L 12 92 04/14/21 23:50 41 L 19 95 04/14/21 23:20 30 L 04/14/21 23:04 36.4 C L 32 L 15 167/75 H 93 04/14/21 23:00 36.4 C L 34 L 14 167/75 H 97 04/14/21 22:43 30 L 16 154/75 H 94 04/14/21 21:50 30 L 15 93 04/14/21 21:40 33 L 12 94 04/14/21 21:30 32 L 186/88 H 92 04/14/21 21:20 32 L 14 94 04/14/21 21:10 30 L 96 04/14/21 21:00 33 L 15 178/85 H 94 04/14/21 20:50 43 L 15 94 04/14/21 20:40 30 L 22 94 04/14/21 20:30 36 L 16 04/14/21 20:20 36 L 15 90 04/14/21 20:10 38 L 16 96 04/14/21 20:00 32 L 16 94 04/14/21 19:50 37 L 17 94 04/14/21 19:40 28 L 14 94 04/14/21 19:31 87 26 H 04/14/21 19:20 35 L 16 96 04/14/21 19:10 35 L 16 98 04/14/21 19:07 95 04/14/21 19:00 33 L 21 95 04/14/21 18:50 40 L 17 04/14/21 18:40 33 L 16 99 04/14/21 18:05 36.5 C 33 L 20 176/81 H 97 Recovery Score Activity: Moves 4 extremities Respiration: Deep Breath/Cough Circulation: +/-20% PreAnes Value Consciousness: Fully Awake Oxygen Saturation: > 92% On Room Air Discharge Sedation Level of Care: Fast Track Phase II Post Sedation Plan On clinical assessment, the patient appears to have tolerated the sedation without complications. Patient is recovering as anticipated. Patient will continue to be monitored by nursing and may be discharged when sedation discharge criteria are met per below protocol. Upon Completions of procedure up to 15 minutes continue every 5 minute vital signs and the P.A.R. score; then discharge to a Phase I or Fast Track to Phase II per the following guidelines: * Discharge Patient to appropriate Phase II area if PAR is 8 or greater or return to pre- procedure baseline. The post - procedure orders will be as directed. * If PAR score is less than 8 or not return to pre-procedure baseline then patient will follow Phase I monitoring till PAR is reached for Phase II. The Phase I may be done in procedure room or may call to secure a Phase I area. * If naloxone or flumazenil are used for reversal, hold in Phase I for continued monitoring from when last reversal dose was given for a minimum of 60 minutes or longer pending the nurse and/or physician discretion of patient condition before discharge to Phase II. Please call the Sedation Physician to re-evaluate and complete post-note for discharge to Phase II area. Do NOT discharge from procedure sedation or Phase 1 until post- sedation evaluation note is complete by procedure /sedation MD Sedation Discharge Instructions to be given to the patient at discharge to home.
--- NOTE | 2021-04-15 09:54 | Operative Report ---
Post Operative Report Pre & Post Diagnosis chb Operation Date: 04/15/21 07:30 <No data on this case meets the specified criteria> I identified the patient and participated in the time-out.: Yes Procedure dual chamber ppm Operation Date: 04/15/21 07:30 Actual Procedures p Cineradiography w/Routine Exam - Nanette Callejas DO Surgeon Nanette Callejas, Still Operator none Estimated Blood Loss 25 Findings Consistent with Post-Op Diagnosis Specimens none Description of Procedure see official report I attest to the content of the Intraoperative Record and any orders documented therein. Any exceptions are noted below.
--- NOTE | 2021-04-15 09:58 | Billing Data ---
Date of Service April 15, 2021 Coding Level of Care Code 31494 Subseq Hosp Care Lvl 3
[2021-04-15] MEDS ORDERED: amLODIPine BESYLATE 5 MG TAB PO ONE (11:30)
[2021-04-15] MEDS: PANTOprazole 40 MG TAB PO SCH (11:46)
--- NOTE | 2021-04-15 11:50 | Hospitalist Progress Note ---
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 In the ED he was found to have complete heart block with heart rate in 20s to 30s. He was moved to ICU until pacemaker implantation. He is being managed for the following: #. Symptomatic bradycardia #. Complete heart block Patient admitted with symptomatic bradycardia, found to have complete heart block in the ED. Status post dual-chamber pacer on 04/15/2021. Lyme serology negative, Covid negative, TSH WNL, troponin negative at presentation. Cardiology on board: Plan to add BETY inhibitor pending ongoing blood pressure assessment. Downgrade patient to MedSurg with telemetry. Continue to monitor. #. Hypertension Blood pressure fairly under control, resume with home meds. #. History of ependymoma Admitting CT head: 1. Moderately increased size of the posterior fossa mass correlating with the patient's history of partially resected ependymoma now measuring over 5 cm in size. This results in effacement of the fourth ventricle. No associated hydrocephalus. 2. Age-related involutional changes with progressively worsened chronic microvascular ischemic disease. Follow-up with [facility] for further management of brain tumor as per patient's preference. DVT prophylaxis. SCDs Re: Brain tumor Full code Disposition: PT/OT consult, CM to assist with DC planning. Patient's Ms. Radha Medina, contact #[phone]. Admission and Anticipated Discharge Date Admission Date: April 14, 2021 Subjective Patient was lying in bed semiupright, NAD, on 2 L nasal cannula oxygen. Per RN no acute events overnight. Patient is eating okay. Got dual-chamber pacemaker implant in the morning. Reports some pain at the site of pacemaker implant - bearable. Denies fever/headache/chills/feeling of heart racing/chest pain/other review of symptoms. Patient looks stable and can be downgraded to Med/Surge with Tele. Physical Exam Physical Exam: GENERAL: Alert and oriented x3. NAD, on 2 L. [No home oxygen.] HEENT: No pallor, no icterus. Pupils equal, round and reactive to light. Oral mucosa moist. NECK: No JVD, no neck masses. HEART: S1 and S2 heard. Regular rate and rhythm. No murmur, no gallop. Left upper chest with clean dressing without soakage [recent dual-chamber pacer placement]. Left arm with sling support. RESPIRATORY SYSTEM: Normal AP diameter. No accessory muscle use. No wheezing, no crackles. ABDOMEN: Soft, bowel sounds present, nontender, no distention. CENTRAL NERVOUS SYSTEM: Alert and oriented x3. No facial droop. Speech is clear. Obeys simple commands. Moves extremities. EXTREMITIES: No edema, no erythema seen. Results & Data Results & Data ([facility]) Vital Signs (Past 12 Hours) Vital Signs Temp Pulse Pulse Resp BP BP Pulse Ox 04/15/21 10:50 36.4 C L 66 22 166/92 H 94 04/15/21 10:30 61 16 147/83 H 96 04/15/21 10:13 63 16 159/70 H 96 04/15/21 10:00 60 16 136/80 94 04/15/21 07:23 36.8 C 30 L 20 152/81 H 96 04/15/21 05:00 31 L 12 172/78 H 95 04/15/21 04:00 36.7 C 27 L 14 158/86 H 90 04/15/21 03:30 28 L 14 152/92 H 94 04/15/21 02:30 32 L 15 152/76 H 95 04/15/21 02:00 29 L 16 152/76 H 95 04/15/21 01:00 37 L 15 149/113 H 91 04/15/21 00:10 30 L 13 167/82 H 92 04/15/21 00:00 31 L 12 92 04/14/21 23:50 41 L 19 95
--- NOTE | 2021-04-15 12:06 | XRay Report ---
XR chest 1V portable HISTORY: Status post pacemaker placement. COMPARISON: Chest 04/14/2021. FINDINGS: Interval placement of a left-sided dual-chamber pacemaker. The leads appear intact. No pneu mothorax. No pleural effusions. There are low lung volumes. No new focal lung consolidations to sugge st pneumonia. No evidence for pulmonary edema. The cardiac silhouette remains mildly enlarged. Old, h ealed left-sided rib fractures. IMPRESSION: Interval placement of a left-sided dual-chamber pacemaker. No pneumothorax. ACT 112: Negative or not required by law. Electronically signed by: Nakul Grant M.D. 04/15/2021 12:04 PM
--- NOTE | 2021-04-15 12:19 | Cardiology Consultation ---
Date of Consultation April 15, 2021 Assessment & Plan (1) Symptomatic bradycardia: (2) Complete heart block: (3) HTN (hypertension): 75-year-old male admitted with symptomatic bradycardia, intermittent complete heart block as well as 2-1 AV block. Dual-chamber pacemaker implanted today without complication. Telemetry reveals primarily atrial pacing, AV paced rhythm. Hypertensive this morning, however, has not received amlodipine. Recommend 10 mg of amlodipine x1 now then daily. Baseline lab studies including CBC, chemistry, Lyme screen, and thyroid studies within normal limits. Preliminary review of resting 2D transthoracic echocardiogram demonstrates evidence of mild concentric left ventricular hypertrophy and borderline mild aortic stenosis. Consider addition of BETY inhibitor pending ongoing blood pressure assessment. History of Present Illness Reason for Consultation: Heart block Requesting Physician: Dr. Messi Abel Attending Physician: Dee Olguin MD History of Present Illness 75-year-old male patient presented to the emergency department with shortness of breath, fatigue, and intermittent lightheadedness. ECG on admission demonstrating 2-1 AV block with periods of third-degree AV block. Treated with 1 mg of intravenous atropine in the ER without significant effect. He describes episodes of transient shortness of breath, fatigue, and lightheadedness over the past 2 years. Denies overt syncope. No chest discomfort or unusual shortness of breath. Periods of sinus bradycardia, 2-1 AV block, and complete heart block recorded overnight. Patient was taken to the electrophysiology laboratory this morning for dual-chamber pacemaker implantation. No complications reported. Currently resting comfortably. Consumed his midday meal. No chest discomfort, lightheadedness, or dizziness. Telemetry reveals atrial paced and AV paced rhythm. Complex noncardiac history listed below. Amlodipine held this morning prior to procedure. Blood pressure mildly elevated. Allergies Allergy/AdvReac Type Severity Reaction Status Date / Time No Known Allergies Allergy Unverified 04/14/21 18:59 Home Medications Medication Instructions Recorded Confirmed Type amlodipine 10 mg tablet 10 mg PO QAM 04/14/21 04/14/21 History omeprazole 20 mg tablet,delayed 20 mg PO QAM 04/14/21 04/14/21 History release Patient History Medical History Ependymoma GERD (gastroesophageal reflux disease) Hypertension Surgical History H/O brain surgery Social History Smoking Status: Former smoker Tobacco Type: Cigarettes and Smokeless Tobacco (Dip or Chew) Do You Dip or Chew Tobacco: Yes; Hx Alcohol Use: No Hx Substance Use: No Preferred Language: Zambian Communication Ability: Effective Preflight Inspector Required: No Beliefs That Will Affect Care: None Current Living Situation: Spouse Other Information That Helps Us Care for You: No Feels Safe at Home: Yes Safety Concerns: Feels Safe At This Time Assistive Devices: Denture - Upper, Glasses and Hearing Aid - Bilateral Review of Systems Review of Systems: All systems reviewed & are unremarkable except as noted in Subjective Physical Exam Constitutional: well developed and well nourished; no acute distress Respiratory: normal respiratory effort; no respiratory distress, no labored breathing and no retractions Auscultation: lungs clear to auscultation bilaterally; no crackles, no rales, no rhonchi and no wheezes Cardiovascular: Rate/Rhythm: regular rate and regular rhythm Heart Sounds: normal S1, normal S2 and + murmur (2/6 low pitched early peaking systolic ejection murmur heard best at base) Vessels: radial pulses present; no JVD an d no carotid bruit Extremities: no edema Gastrointestinal (Abdomen): Inspection/Auscultation: abdomen normal to inspect ion and normal bowel sounds; abdomen not distended Percussion/Palpation: abdomen soft; abdomen nontender, no guarding and abdomen not rigid Neurologic: CN's II-XI intact bilaterally and moves all extremities; no focal motor deficits Motor/Sensory: no tremor Psychiatric: A+Ox3, euthymic affect Results & Data ([facility]) Vital Signs (Past 12 Hours) Vital Signs Temp Pulse Pulse Resp BP BP Pulse Ox 04/15/21 11:45 68 18 142/76 H 97 04/15/21 11:30 70 21 155/79 H 95 04/15/21 11:15 66 24 172/98 H 91 04/15/21 11:00 68 17 178/101 H 94 04/15/21 10:51 68 21 04/15/21 10:50 36.4 C L 66 22 166/92 H 94 04/15/21 10:30 61 16 147/83 H 96 04/15/21 10:13 63 16 159/70 H 96 04/15/21 10:00 60 16 136/80 94 04/15/21 07:23 36.8 C 30 L 20 152/81 H 96 04/15/21 05:00 31 L 12 172/78 H 95 04/15/21 04:00 36.7 C 27 L 14 158/86 H 90 04/15/21 03:30 28 L 14 152/92 H 94 04/15/21 02:30 32 L 15 152/76 H 95 04/15/21 02:00 29 L 16 152/76 H 95 04/15/21 01:00 37 L 15 149/113 H 91 (1) HTN (hypertension) Hypertension type: unspecified Qualified Code(s): I10 - Essential (primary) hypertension
--- NOTE | 2021-04-15 17:34 | Electrocardiogram Report ---
Test Reason : Blood Pressure : / mmHG Vent. Rate : 031 BPM Atrial Rate : 031 BPM P-R Int : 000 ms QRS Dur : 140 ms QT Int : 686 ms P-R-T Axes : 000 -42 -19 degrees QTc Int : 492 ms Poor data quality, interpretation may be adversely affected Sinus bradycardia with 2:1 AV block Left axis deviation Right bundle branch block Inferior infarct , age undetermined Abnormal ECG No previous ECGs available Confirmed by William Zapien ([id number]) on 04/15/2021 5:34:08 PM Referred By: REFERRED SELF Confirmed By:John Zapien
--- NOTE | 2021-04-15 17:35 | Electrocardiogram Report ---
Test Reason : Blood Pressure : / mmHG Vent. Rate : 031 BPM Atrial Rate : 031 BPM P-R Int : 164 ms QRS Dur : 162 ms QT Int : 672 ms P-R-T Axes : 007 -31 -07 degrees QTc Int : 482 ms Sinus bradycardia with high-degree AV block and ventricular escape beats Left axis deviation Right bundle branch block Abnormal ECG Confirmed by William Zapien ([id number]) on 04/15/2021 5:34:50 PM Referred By: REFERRED SELF Confirmed By:John Zapien
--- NOTE | 2021-04-15 17:36 | Electrocardiogram Report ---
Test Reason : Blood Pressure : / mmHG Vent. Rate : 041 BPM Atrial Rate : 041 BPM P-R Int : 000 ms QRS Dur : 150 ms QT Int : 672 ms P-R-T Axes : 000 -50 -12 degrees QTc Int : 554 ms Sinus rhythm with complete heart block and ventricular escpe rhythm Left axis deviation Right bundle branch block Abnormal ECG When compared with ECG of 14-APR-2021 18:44, (unconfirmed) Wide QRS rhythm has replaced Sinus rhythm Confirmed by William Zapien ([id number]) on 04/15/2021 5:35:45 PM Referred By: REFERRED SELF Confirmed By:John Zapien
[2021-04-15] MEDS ORDERED: amLODIPine BESYLATE 5 MG TAB PO SCH (21:00)
--- NOTE | 2021-04-16 07:00 | Electrocardiogram Report ---
Test Reason : Blood Pressure : / mmHG Vent. Rate : 063 BPM Atrial Rate : 063 BPM P-R Int : 148 ms QRS Dur : 146 ms QT Int : 516 ms P-R-T Axes : 043 -71 089 degrees QTc Int : 528 ms AV dual-paced rhythm Abnormal ECG When compared with ECG of 14-APR-2021 19:07, (unconfirmed) Electronic ventricular pacemaker has replaced Wide QRS rhythm Vent. rate has increased BY 22 BPM Confirmed by William Zapien ([id number]) on 04/16/2021 6:59:33 AM Referred By: REFERRED SELF Confirmed By:John Zapien
[2021-04-16] MEDS: PANTOprazole 40 MG TAB PO SCH (07:44)
[2021-04-16 08:41] LABS: BUN Creatinine Ratio 15.4 (10-20); Calcium 9.4 mg/dl (8.5-10.1); Creatinine Clr Calc Pharmacy 72.4 ml/min; Est GFR (African American) 93.9 ml/min; Magnesium 2.6 mg/dl (1.8-2.4); Potassium 3.9 mmol/L (3.5-5.1)
[2021-04-16 08:42] LABS: Phosphorus 3.5 mg/dl (2.5-4.9)
[2021-04-16] MEDS ORDERED: amLODIPine BESYLATE 5 MG TAB PO SCH (09:00)
[2021-04-16] MEDS ORDERED: lisinopril 10 MG TAB PO SCH (09:00)
--- NOTE | 2021-04-16 11:07 | Cardiology Progress Note ---
Date of Service April 16, 2021 Assessment & Plan (1) Symptomatic bradycardia: (2) Complete heart block: (3) HTN (hypertension): Plan: 75-year-old male admitted with symptomatic bradycardia, intermittent complete heart block as well as 2-1 AV block. Dual-chamber pacemaker implanted without complication. Telemetry reveals primarily atrial pacing, AV paced rhythm. Hypertensive during admission and lisinopril added to medical regimen Patient already symptomatically improved post pacemaker Plan: Patient to be discharged today on medications as noted. We will make arrangements for follow-up with pacemaker clinic for wound check and device interrogation in the next 1 week's time Admission and Anticipated Discharge Date Admission Date: April 14, 2021 Subjective Patient was seen and examined, chart, medications, telemetry reviewed. Patient notes almost immediate improvement in functional capacity on ambulation last night and this morning. No further breathlessness. No chest pain or discomfort. Pacemaker site healing well. Review of Systems Review of Systems: All systems reviewed & are unremarkable except as noted in Subjective Physical Exam Constitutional: well developed and well nourished; no acute distress ENMT: Mallampati Class: II Respiratory: normal respiratory effort, lungs clear to auscultation normal respiratory effort; no respiratory distress, no labored breathing and no retractions Auscultation: lungs clear to auscultation bilaterally; no crackles, no rales, no rhonchi and no wheezes Cardiovascular: Rate/Rhythm: regular rate, regular rhythm and + bradycardic Heart Sounds: normal S1, normal S2 and + murmur (2/6 low pitched early peaking systolic ejection murmur heard best at base) Vessels: radial pulses present; no JVD and no carotid bruit Extremities: no edema Chest (Breasts): Chest: + pacemaker (Incision site bandaged without hematoma or drainage.) Gastrointestinal (Abdomen): Inspection/Auscultation: abdomen normal to inspection and normal bowel sounds; abdomen not distended Percussion/Palpation: abdomen soft; abdomen nontender, no guarding and abdomen not rigid Neurologic: CN's II-XI intact bilaterally and moves all extremities; no focal motor deficits Motor/Sensory: no tremor Psychiatric: A+Ox3, euthymic affect Results & Data ([facility]) Vital Signs (Past 12 Hours) Vital Signs Temp Pulse Resp BP BP Pulse Ox 04/16/21 11:05 37.0 C 61 18 153/77 H 154/91 H 94 04/16/21 07:42 37.0 C 61 18 153/77 H 94 04/16/21 03:00 37.1 C 67 20 138/76 93 (1) HTN (hypertension) Hypertension type: unspecified Qualified Code(s): I10 - Essential (primary) hypertension
[2021-04-16 11:41] VITALS: BP 137/77; PULSE 56; TEMP 98.1; O2SAT 95
--- NOTE | 2021-04-16 12:46 | Operative Report (OR) ---
DATE OF PROCEDURE: 04/15/2021 PREOPERATIVE DIAGNOSIS: Complete heart block. POSTOPERATIVE DIAGNOSIS: Complete heart block. PROCEDURE: Dual chamber rate responsive permanent pacemaker under fluoroscopic guidance along with p eripheral venogram. SURGEON: Nanette Callejas DO SHELL GRADER: None. ANESTHESIA: Monitored conscious sedation administered under my supervision by Lucille Best. Start time 8:35, end time 9:52. A total of 2 mg of Versed, 50 mcg of fentanyl. INTRAVENOUS FLUIDS: 72 mL. ANTIBIOTICS: Ancef 2 grams. ADDITIONAL MEDICINES: 10 mg of hydralazine. CONTRAST: 25 mL. URINE OUTPUT: None. SPECIMENS: None. FINDINGS: See below. DRAINS: None. INDICATIONS: This is a 75-year-old gentleman who has a past medical history for brain tumor, which w as partially resected at [facility], ependymoma, gastroesophageal reflux disease, hypertension. He presented to [facility] [address] with complete heart block and was recommended a pacemaker. CONSENT: Consent was obtained prior to the patient going into electrophysiology lab. The patient wa s informed of the risks, benefits, and alternatives to the procedure. Risks include, but not limited to sudden cardiac , cardiac arrhythmias, cerebrovascular accident, myocardial infarction, injur y to the blood vessels, chamber of the heart and lung, bleeding and infection. The patient understoo d these risks and agreed to the procedure as planned. Informed consent was obtained. DESCRIPTION OF PROCEDURE: The patient was brought into electrophysiology lab in a fasting state. He was connected to continuous cardiac monitoring. A time-out was performed to ensure patient identity and procedure correctly. He was prepped and draped over the left infraclavicular space in normal zapata rgical standard fashion. Monitored conscious sedation was given throughout the procedure for patient 's comfort level. Rye precautions maintained throughout the procedure. 20 mL of 1% lidocaine-bupivacaine mixture were given in the left deltopectoral groove. Incision was made in the left deltopectoral groove. Blunt dissection was performed down to the pectoralis muscle. Then, a peripheral venogram was performed using 10 mL of contrast to identify the axillary vein. V enous axillary access was obtained through a needlestick without any problems. A guidewire was inser veronica without any resistance. A 7-Wallisian sheath was inserted over the guidewires. The dilator was rem dania and a second guidewire was inserted through the sheath to allow for retained venous access. She ath was removed, flushed, reinserted over one of the dilators and then reinserted over one of the victoriano dewires. The guidewire and dilator removed. The right atrial lead was temporarily placed in the right ventricle to have backup pacing while pacin g the left bundle lead under fluoroscopic guidance. I did have to peel away the 7-Wallisian sheath linda use I needed more room to get the lead into the ventricle. Once that was in position, then, a second 7-Wallisian sheath was inserted over the retained guidewire. The guidewire and dilator removed. Then, the His C315 sheath was advanced into the right ventricle over a Glidewire. The Glidewire and dilato r removed. Then, the left bundle lead was advanced through the sheath. I attempted to do some intra cardiac electrogram His bundle recordings, but it was difficult to find given complete heart block, b ut I kind of had an idea where the His bundle region was based on my R and P ratios. I then moved the camera into LEACH 30 and started positioning the lead down in certain areas and came o n pacing to pace map to see how when I had a nice W form pacing pattern in V1. I did have a good are a, so then I came to BERMUDIAN 30 and started giving clockwise screws, did start turning the lead into the septum. I paused to see how my pacing complex changed and then gave a few more turns and then gave s ome contrast to see how well I was into the septum. I was pretty good into the septum, but I gave a few more and then I was very well into the septum. Our pacing complex looked pacing. I probably in t he little bit lower on the septum than typical, but we had good pacing thresholds. The His C315 sheath was then slit under fluoroscopic guidance. Then, the right atrial lead that was temporarily in the right ventricular apex. The screw was retracted and this lead was placed into the right atrial appendage under fluoroscopic guidance. There was adequate pacing and sensing threshold s and no diaphragmatic stimulation output pacing. The right atrial lead was then fixated to the pect oralis muscle using 0 silk suture. Then, the 7-Wallisian SafeSheath around the left bundle lead was pee led away and lead was fixated to pectoralis muscle using 0 silk suture. A pursestring using a 2-0 Vi cryl on a CT needle was placed around the venous puncture site to prevent any further backbleeding. The pacemaker pocket was created using blunt dissection over the pectoralis muscle within the pectora lis fascia. Then, the pocket was flushed with copious amounts of vancomycin and saline wash and insp ected for hemostasis. The leads were then attached to the pulse generator making sure the pins were in appropriate position, passed set screw and set screws were all tightened. Pulse generator was the n placed in the TYRX pouch followed then by being placed in the pocket and then the incision was clos ed in a 3-layer fashion, 2-0 Vicryl interrupted suture, followed by 3-0 Vicryl suture following by 4- 0 Monocryl running stitch and Dermabond was applied followed by Telfa and Tegaderm dressing. EQUIPMENT: 1. The pulse generator is a [employer] [place] XT DR VELASQUEZ Mason [id number], serial number [id number]. 2. The TYRX pouch, I do not have information for. 3. The right atrial lead, Medtronic 5076-52 cm, serial number [id number]. 4. Left bundle lead, Medtronic 3830-69 cm, serial number [id number]. INTRAOPERATIVE TESTIN. Right atrial lead, P waves 1.4 millivolts, impedance 450 ohms, threshold 0.75 volts at 0.5 millis econds. 2. Left bundle lead R waves 9 millivolts, impedance 900 ohms, threshold 0.7 volts at 0.5 millisecond s. FINAL PARAMETERS THROUGH THE DEVICE: 1. Right atrial lead, P waves 1.6 millivolts, impedance 416 ohms, threshold 0.5 volts at 0.4 millise conds. 2. Left bundle lead, no R waves. The patient is now dependent. Impedance 750 ohms, threshold 0.7 v olts at 0.4 milliseconds. FINAL PARAMETERS: DDDR 60/130, right atrial amplitude 3.5 volts, pulse width 0.4 milliseconds, sensi tivity 0.3 millivolts. Left bundle lead amplitude 3.5 volts, pulse width 0.4 milliseconds, sensitivi ty 0.9 millivolts. IMPRESSION: Successful dual chamber rate responsive permanent pacemaker under fluoroscopic guidance along with peripheral venogram secondary to complete heart block. PLAN: Monitor patient overnight, 12-lead ECG, chest x-ray. He cannot lift the left elbow or left sh oulder for 1 month. He cannot lift more than 10 pounds with left arm for 2 weeks. He is to keep the dressing on and dry until his wound check next week and then he can wear a sling for as-needed and c omfort. Job ID: [id number]
--- NOTE | 2021-04-16 13:45 | Discharge Summary ---
Date of Service April 16, 2021 Admission HPI Per Admitting Provider History obtained from patient and records. Medical history significant for cranial ependymoma status post surgery, radiation (2005), HTN, PVD, GERD, past tobacco abuse. Patient noted worsening of chronic weakness of his right side since last year. Worsening balance and frequent falls with transient left visual field loss symptoms. Patient denies headache symptoms. Outpatient Brain MRI last February 2021 results as follows : Heterogeneously enhancing mass in the posterior fossa encasing the distal right vertebral artery causing mass-effect on the medulla and cerebellum. Although the overall dimensions of the mass appears similar, extent of adjacent FLAIR hyperintensity in the right cerebellum is increased. May reflect progressive vasogenic edema or progressive tumor infiltration. Extensive findings of superficial fibrosis throughout cerebellar folia as well as with numerous supratentorial foci suggesting prior subarachnoid hemorrhage. Moderate advanced chronic white matter changes. Patient neurologist recommended follow-up with [facility] surgeon in [place]. No role for operative intervention as per surgeon as per patient. Possible role for radiotherapy. Patient noted to be bradycardic, cardiac rate in the 30s during [facility] visit. Patient without chest pain, shortness of breath complaints at that time. [facility] surgeon recommended local cardiology consultation for bradycardia. In the last week, patient noted increased fatigue and shortness of breath on exertion. Transient chest tightness. Cardiac rate 30s at home. Patient advised by PCP's office to go to the ER. Patient noted to have complete heart block at the ER. Cardiac rate 20-30s. Atropine 1 dose given. As per patient, he is comfortable as long as he is not moving around. Medical History as above Outpatient TTE follow-up study for /December 2020 as follows: Concentric LVH. Moderate LAE enlargement. Mildly abnormal LV diastolic dysfunction. Mild AV sclerosis. Mild MR is present. Mild TR present. Aortic root is borderline enlarged. Proximal ascending thoracic aorta is mildly enlarged. No significant change from April 2019. 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 Admission Exam Per Admitting Provider GENERAL: Comfortable, slightly hard of hearing, dysarthric (chronic), pleasant, no respiratory distress SKIN: Normal color, warm HEENT: Bespectacled, pink palpebral conjunctivae, no ptosis, dry buccal mucosa NECK : Supple, no tenderness CHEST : CTA, no tenderness HEART : Bradycardic, no obvious murmurs ABDOMEN: Some distention, nontender EXTREMITIES : No LE swelling/tenderness, no other conspicuous deformities noted NEUROLOGIC : Coherent, mild dysarthria, gait and stance not assessed Principal Diagnosis Complete heart block status post dual-chamber pacer placement Discharge Exam GENERAL: Alert and oriented x3. NAD, on RA. HEENT: No pallor, no icterus. Pupils equal, round and reactive to light. Oral mucosa moist. NECK: No JVD, no neck masses. HEART: S1 and S2 heard. Regular rate and rhythm. No murmur, no gallop. Left upper chest with clean dressing without soakage [recent dual-chamber pacer placement]. Left arm with sling support. RESPIRATORY SYSTEM: Normal AP diameter. No accessory muscle use. No wheezing, no crackles. ABDOMEN: Soft, bowel sounds present, nontender, no distention. CENTRAL NERVOUS SYSTEM: Alert and oriented x3. No facial droop. Speech is clear. Obeys simple commands. Moves extremities. EXTREMITIES: No edema, no erythema seen. Discharge Data Allergies Allergy/AdvReac Type Severity Reaction Status Date / Time No Known Allergies Allergy Unverified 04/14/21 18:59 Consultations 04/14/21 18:20 Consult Cardiology Stat 04/14/21 20:09 ED Decision to Admit Stat 04/14/21 23:20 Consult Rubber Stamp Assembler Routine Procedures Performed Operation Date: 04/15/21 07:30 Actual Procedures p Pacer with A/V Leads (Dual) - DO erma Vance Bundle of his Recording - DO erma Vance Venogram, Unilateral - Nanette Callejas DO Ordered Studies 04/14/21 18:43 CT head/brain wo con Stat 04/15/21 07:00 EP Lab Images for PACS ONCE Hospital Course (1) Complete heart block: (2) Symptomatic bradycardia: 75-year-old male with PMH of cranial ependymoma status post surgery and radiation [2006], HTN, PVD, GERD and past tobacco abuse came in with complaint of increased fatigue and shortness of breath on exertion in the past week [employer] 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 In the ED he was found to have complete heart block with heart rate in 20s to 30s. He was moved to ICU until pacemaker implantation. He was managed for the following while in the hospital: #. Symptomatic bradycardia #. Complete heart block Patient admitted with symptomatic bradycardia, found to have complete heart block in the ED. Status post dual-chamber pacer on 04/15/2021. Lyme serology negative, Covid negative, TSH WNL, troponin negative at presentation. Cardiology evaluated him while in hospital Lisinopril added to his blood pressure regimen. Patient to follow-up with cardiology as an outpatient in a week time. #. Hypertension Blood pressure borderline high most of the time while in hospital, lisinopril added to his regimen. #. History of ependymoma Admitting CT head: 1. Moderately increased size of the posterior fossa mass correlating with the patient's history of partially resected ependymoma now measuring over 5 cm in size. This results in effacement of the fourth ventricle. No associated hydrocephalus. 2. Age-related involutional changes with progressively worsened chronic microvascular ischemic disease. Follow-up with [facility] for further management of brain tumor as per patient's preference. DVT prophylaxis. SCDs while in hospital Re: Brain tumor Full code Patient discharged to home with following instruction at the time of discharge: device and wound check next week at [facility] Keep dressing on & dry until wound check next week Take medications as prescribed. Follow-up with your primary care physician within a week time. New medication lisinopril has been added for your blood pressure management, check your blood test BMP within a week time and have the results forwarded to your primary care physician. You can take [id number] Tylenol for your pain management due to recent pacemaker placement. Follow-up with your cardiology in a week. Total Time Total Time Spent Total Time Spent (In Minutes): 40 Discharge Plan Discharge Items Patient Disposition: Home - Self-Care Reason For Visit: SYMPTOMATIC BRADYCARDIA Discharge Diagnosis: Complete heart block status post dual-chamber pacer placement Activity: As commented below Activity Comment: do not raise the left elbow over the left shoulder for 1 month Lifting: No more than 10 pounds Lifting Comment: do not lift more than 10 pounds with the left arm for 2 weeks Bathing: Keep incision dry Bathing Comment: keep dressing on & dry until wound check next week Non-emergency contact: Primary Care Provider Call non-emergency contact if: you have any medication questions, your symptoms worsen, your pain is worsening and your rectal temperature is above 100.4 Follow-up/Referrals: Domingo Santana MD [Primary Care Provider] - Diet: Heart Healthy Addtl Attending Provider Instructions: device and wound check next week at [facility] Keep dressing on & dry until wound check next week Take medications as prescribed. Follow-up with your primary care physician within a week time. New medication lisinopril has been added for your blood pressure management, check your blood test BMP within a week time and have the results forwarded to your primary care physician. You can take [id number] Tylenol for your pain management due to recent pacemaker placement. Follow-up with your cardiology in a week. Pending Studies at Discharge: No Stand-Alone Forms: My [facility] [employer], Smoking Cessation Medications and DC Order Prescriptions: New lisinopril 10 mg Tablet 10 mg PO QPM Qty: 30 RF: 0 Continued amlodipine 10 mg tablet 10 mg PO QAM RF: 0 omeprazole 20 mg Tablet,Delayed Release (Dr/Ec) 20 mg PO QAM RF: 0 Discharge Orders: Discharge Order (Routine); Ordered 04/16/21 Ordered By: Dee Olguin Admission Data Admit Date/Time: 04/14/21 22:21 Attending Provider: Dee Olguin Admit Provider: Dee Olguin Primary Care Provider: Domingo Santana Other Providers: Roland Duarte ; Anthony Jacob ; Temo Lee Other Interventions: Discharge Summary Assessment (RN) Last Done: 04/16/21 11:05
== END 2021-04-16 13:47 | disposition home or self-care (01) | DRG 243 ==
LOC: ED 17:34 → 1E 22:21 → SUATTDRO 22:21 → 1E 22:43 → 2N 04-15 20:04
DX: I10 Essential (primary) hypertension; I35.0 Nonrheumatic aortic (valve) stenosis; I44.2 Atrioventricular block, complete; Z92.3 Personal history of irradiation; Z87.891 Personal history of nicotine dependence; I73.9 Peripheral vascular disease, unspecified; Z20.822 Contact with and (suspected) exposure to COVID-19; R06.02 Shortness of breath; C71.9 Malignant neoplasm of brain, unspecified; R00.1 Bradycardia, unspecified; R29.2 Abnormal reflex; K21.9 Gastro-esophageal reflux disease without esophagitis; Z79.899 Other long term (current) drug therapy